=== PATIENT | male | born 1945 | race Caucasian/White ===

== ENCOUNTER 2024-02-11 12:19 | Emergency (ER) | payer MEDICARE, SELFPAY ==
[2024-02-11] VITALS (17 sets, daily range): BP systolic 133–149; BP diastolic 92–129; PULSE 97–135; RESP 14–25; TEMP 36.2–36.8; O2SAT 95–98; BMI 24.5
--- NOTE | 2024-02-11 12:33 | EKG12_ITS ---
Test Reason : Blood Pressure : / mmHG Vent. Rate : 107 BPM Atrial Rate : 107 BPM P-R Int : 128 ms QRS Dur : 066 ms QT Int : 334 ms P-R-T Axes : 052 022 036 degrees QTc Int : 445 ms Sinus tachycardia Otherwise normal ECG Confirmed by EZ BEE, LAINE ([id number]), story editor RAMSES MONSIVAIS ([id number]) on 02/12/2024 1:49:36 PM Referred By: Sal Hayes Confirmed By:LAINE HUI MD
--- NOTE | 2024-02-11 12:33 | RAD_ITS ---
STUDY: X-RAY CHEST REASON FOR EXAM: Male, 78 years old. Neuro deficit, acute, stroke suspected TECHNIQUE: Single AP portable view of the chest. COMPARISON: None. FINDINGS: EKG electrodes are seen. The lungs are clear and expanded. There is no demonstrated pleural abnormality. Normal size heart. Normal mediastinum and yonas. Normal visualized pulmonary arteries. There is atherosclerotic calcification of the aortic arch with tortuosity. There are diffuse degenerative changes of the visualized thoracic spine. Normal visualized ribs, clavicles, and shoulders. There is no demonstrated abnormality of the visualized soft tissue structures of the upper abdomen. RAD/Chest 1 View IMPRESSION: No acute abnormality is seen. Electronically Signed: Geo Andrade MD at 13:46 EDT ,
--- NOTE | 2024-02-11 12:34 | CT_ITS ---
STUDY: CTA HEAD AND NECK WITH CONTRAST REASON FOR EXAM: Male, 78 years old. Neuro deficit, acute, stroke suspected RADIATION DOSAGE (If Supplied By Facility): CTDIvol = ( 26.93 ) mGy, DLP = ( 1556.11 ) mGycm TECHNIQUE: CT angiography was performed with a multi-detector CT scanner. Data acquisition was obtained from the skull base through the vertex following intravenous administration of IV 100mL [id number]-[id number]. MIP images were reconstructed from the axial data set. Post-processing of the angiographic images was performed, with multiplanar reformation and 3D reconstruction. Individualized dose optimization techniques were used for this CT. COMPARISON: No relevant priors. FINDINGS: Normal bilateral petrous carotid arteries. There is calcified plaque formation of the right cavernous carotid artery, without a cross-sectional luminal stenosis. There is calcified plaque formation of the left cavernous carotid artery, without a cross-sectional luminal stenosis. Normal right A1 segments of the anterior cerebral artery. Normal left A1 segments of the anterior cerebral artery. Normal intact anterior communicating artery (ACOM). Normal bilateral A2 segments of the anterior cerebral arteries. Normal right M1 and M2 segments of the middle cerebral arteries, with a normal M1 bifurcation. Normal left M1 and M2 segments of the middle cerebral arteries, with a normal M1 bifurcation. Normal right posterior communicating artery (PCOM). Normal left posterior communicating artery (PCOM). Normal bilateral vertebral arteries. Normal basilar artery with a normal basilar bifurcation. The visualized bilateral superior cerebellar (SCA) arteries are normal. Normal bilateral P1, P2 and visualized P3 segments of the posterior cerebral arteries. There is no demonstrated aneurysm of the [place]. There is no demonstrated abnormality of the visualized brain. AORTIC ARCH: There is atherosclerotic calcific plaque formation of the aortic arch and great vessels arising from the aortic arch, without a hemodynamically significant stenosis. There is a normal origin of the brachiocephalic, left common carotid, and left subclavian arteries. Atherosclerotic plaque formation at the origin of the left common carotid artery and left subclavian artery. RIGHT CAROTID ARTERIES: There is atherosclerotic plaque formation of the common carotid artery, but without a hemodynamically significant stenosis. Normal right common carotid bulb. There is mild atherosclerotic plaque formation of the origin of the right internal carotid artery with less than 50% cross sectional diameter stenosis. Normal visualized cervical portion of the right internal carotid artery. Normal origin of the right external carotid artery (ECA). LEFT CAROTID ARTERIES: There is atherosclerotic plaque formation of the common carotid artery, but without a hemodynamically significant stenosis. Normal left common carotid bulb. There is mild atherosclerotic plaque formation of the origin of the left internal carotid artery with less than 50% cross sectional diameter stenosis. Normal visualized cervical portion of the left internal carotid artery. Normal origin of the left external carotid artery (ECA). VERTEBRAL ARTERIES: Normal bilateral vertebral arteries. CT/CTA Head AND Neck W/ Contrast IMPRESSION: PLAQUE formation at the origin of the left and right internal carotid arteries causing less than 50% stenosis. Electronically Signed: Geo Andrade MD at 14:07 EDT ,
--- NOTE | 2024-02-11 12:34 | ED.VIS.STROK ---
HPI History of Present Illness Chief Complaint: Neuro S/Sx Informant: patient and spouse/S.O. Onset/Context/Timing Onset: Month(s) Context: Gradual Onset Timing: Continuous Quality and Location: Negative for Right Facial Droop, Left Facial Droop, Right Face Paresthesia, Left Face Parasthesia, Right Arm Parasthesia, Left Arm Parasthesia, Right Leg Parasthesia, Left Leg Parasthesia, Right Arm Weakness, Left Arm Weakness, Right Leg Weakness, Left Leg Weakness, Slurred Speech, Expressive Aphasia or Receptive Aphasia Onset: Denies recent illness. Months of decreasing vision. Current Severity: Mild Maximum Severity: Mild Associated Symptoms Associated Symptoms: Negative for Headache, Nausea, Vomiting or Chest Pain Narrative Narrative: 78-year-old male history of detached retina and prior surgeries for cataracts and lens implants. Today saw his award machine operator. Mud Engineer noted a a fair pupillary defect of his right eye. Patient's had some recent falls that he is unsure if it is actually from with his coordination and balance or if it is secondary to his worsening vision. The award machine operator sent him in for evaluation. Prior similar symptoms: Yes Recent Illness/Hospitalization: No PFSH PFS Medical History Cataract Detached retina, right Allergy/AdvReac Type Severity Reaction Status Date / Time No Known Allergies Allergy Verified 02/11/24 12:20 Surgical History History of cataract extraction with lens replacement H/O detached retina repair Social History Smoking Status: Never smoker ROS ROS ED ROS Narrative Denies recent illness. Constitutional Constitutional ED: Denies chills or fever(s) Eyes Eyes: Denies blurry vision ENT ENT ED: Denies ear pain Cardiovascular Cardiovascular: Denies chest pain Respiratory/Chest Respiratory/Chest: Denies cough or dyspnea Gastrointestinal Gastrointestinal: Denies abdominal pain Genitourinary Genitourinary ED: Denies dysuria Musculoskeletal Musculoskeletal: Denies arthralgias Integumentary Denies abscess Neurologic Neurologic: Denies headache(s) Psychiatric Psychiatric: Denies anxiety or depression Endocrine Endocrinology: Denies polydipsia Hematologic/Lymphatic Hematologic/Lymphatic: Denies easy bleeding Allergic/Immunologic Allergic/Immunologic ED: Denies mouth swelling EXAM Physical Exam Narrative Exam Narrative: Well-appearing 78-year-old male sitting upright in bed. Vital signs are stable and he is tachycardic in the 120s. On the monitor there are some artifact but it appears to be a sinus rhythm. H EENT exam pupils round reactive light extra motions are intact. Normal speech. No facial droop. No trauma. Neck nontender. Lungs clear to auscultation bilaterally. Heart tachycardic rate about 122 no murmur. Chest wall ribs nontender. Abdomen soft nontender. Moving all 4 extremities. Nontender no edema. 5 out of 5 emergency room physician strength. Dorsi plantarflexion intact. Neurologically is awake and alert. Answering questions following commands. Fingertip to nose within normal limits. No drift. Normal strength. NIH is 0. Const Vital Signs: 02/11/24 12:20 02/11/24 12:37 02/11/24 12:42 Temperature 98.2 F 97.2 F L Temperature Source Temporal Oral Pulse Rate 135 H 122 H Respiratory Rate 18 20 H Blood Pressure 146/101 H 133/94 H Blood Pressure Mean 116 107 Pulse Ox 97 96 96 Oxygen Delivery Method Room Air Room Air Room Air 02/11/24 13:20 02/11/24 13:23 02/11/24 13:24 Temperature Temperature Source Pulse Rate 100 105 H Respiratory Rate 22 H 24 H Blood Pressure 143/92 H 143/92 H Blood Pressure Mean 109 108 Pulse Ox 95 95 Oxygen Delivery Method Room Air 02/11/24 13:30 02/11/24 13:48 02/11/24 14:00 Temperature Temperature Source Pulse Rate 104 H 97 104 H Respiratory Rate 22 H 18 Blood Pressure 140/95 H Blood Pressure Mean 110 Pulse Ox 97 Oxygen Delivery Method 02/11/24 14:01 02/11/24 14:10 02/11/24 14:12 Temperature Temperature Source Pulse Rate 107 H 107 H 103 H Respiratory Rate 20 H 18 25 H Blood Pressure 149/129 H 140/95 H Blood Pressure Mean 137 107 Pulse Ox 98 97 96 Oxygen Delivery Method 02/11/24 14:15 02/11/24 14:30 02/11/24 14:45 Temperature Temperature Source Pulse Rate 104 H 106 H 102 H Respiratory Rate 17 24 H 19 H Blood Pressure Blood Pressure Mean Pulse Ox 97 96 96 Oxygen Delivery Method 02/11/24 15:00 Temperature Temperature Source Pulse Rate 101 H Respiratory Rate 14 Blood Pressure 139/94 H Blood Pressure Mean 108 Pulse Ox 96 Oxygen Delivery Method Room Air Positive well nourished and well developed; Negative for obese, cachectic, contractures or unkempt General Appearance ED: well developed and NAD; Negative for unkempt, cachectic or contractures Nutritional Appearance: Negative for cachectic or obese HEENT Reports moist mucous membranes atraumatic; Negative for trauma Nose: Negative for other Eyes PERRL and EOMs intact bilaterally General Eye ED: Negative for pale conjunctiva or scleral icterus Neck no lymphadenopathy, supple and no JVD General: Negative for tenderness Thyroid: Negative for other Chest Wall inspection of chest normal and palpation of chest normal Chest: Negative for other Resp normal respiratory effort and clear to auscultation bilaterally Effort and Inspection: Negative for retractions Auscultation: Negative for rales, rhonchi, wheezes or diminished lung sounds Cardio no murmurs Rate: tachycardic Rhythm: regular rhythm GI normal to inspection, nondistended, normoactive bowel sounds, soft to palpation, non-tender, non-distended and no masses Inspection: Negative for abdominal distention Auscultation: normoactive bowel sounds Palpation: Negative for tender, guarding, mass or rebound tenderness present Back/Spine no CVA tenderness General Back: Negative for CVA tenderness Cervical Spine: Negative for cervical spine tenderness Thoracic Spine / Upper Back: Negative for thoracic spinal tenderness Lumbar Spine / Lower Back: Negative for lumbar spinal tenderness Extremity normal to inspection General Extremety ED: Negative for deformity, edema or tenderness General Extremity: Negative for deformity or edema Neuro oriented x3, CN's II-XII intact bilaterally and no sensory deficits noted Neuro Narrative: NIH is 0. Sensorium / Orientation: alert, oriented to person, oriented to place and oriented to time; Negative for orientation impaired, confused, lethargic or stuporous Speech: speech normal Motor Exam: strength 5/5 throughout Psych mental status grossly normal Appearance: Negative for unkempt Attitude: No agitated Mood & Affect: Negative for depressed, anxious or tearful Attention / Concentration: Negative for other Skin no wounds General Skin Exam: Negative for jaundice Rashes: no rashes Trauma: Negative for abrasion or laceration MDM MDM MDM Narrative Medical decision making narrative: 78-year-old male sent in for evaluation to rule out stroke. His exam is normal. His NIH is 0. CTA head and neck and labs to be obtained. He is tachycardic. Repeat exam at 2:06 PM patient doing well. Exam unchanged. NIH remains 0. Nurses had walked the patient said he walked well. Awaiting CAT scan results. Repeat exam at 318 unchanged. Patient I discussed his CAT scan results. He will be discharged home outpatient follow-up. He did not want to be admitted for an MRI or further evaluation. History & Record Review Discussion w/independent historian: Patient Additional record(s) reviewed:: No prior records Lab Data Lab results narrative: CBC shows a white count 8. H&H 15 and 46. Platelets 163. PT/INR and PTT of 13, 1 and 26. Electrolytes show gap of 9. BUN is 17 creatinine 1.4. Glucose 174. Troponin 10. No prior labs available for comparison. Labs: Laboratory Results - last 24 hr 02/11/24 02/11/24 12:33 12:45 WBC 8.2 RBC 4.73 Hgb 15.6 Hct 46.7 MCV 98.7 H MCH 33.0 H MCHC 33.4 RDW Std Deviation 45.0 H RDW Coeff of [place] 12.3 Plt Count 163 MPV 9.7 Immature Gran % (Auto) 1.000 H Neut % (Auto) 85.5 H Lymph % (Auto) 3.5 L Crisp % (Auto) 9.3 Eos % (Auto) 0.1 Baso % (Auto) 0.6 Absolute Neuts (auto) 7.0 Absolute Lymphs (auto) 0.29 L Nucleated RBC % 0 PT 13.2 INR 1.0 APTT 26.0 Sodium 136 Potassium 3.6 Chloride 99 Carbon Dioxide 28.0 Anion Gap 9 BUN 17 Creatinine 1.44 H Estim Creat Clear Calc 45.06 Est GFR (MDRD) Af Amer 61 Est GFR (MDRD) Non-Af 51 L BUN/Creatinine Ratio 11.8 Glucose 174 H Calcium 9.6 Troponin I High Sens 10 POC Glucose 180 H Radiography Chest X-Ray - ED: 1 View, Read by ED Physician, Read by Radiologist, Normal, Heart, Lungs, Mediastinum, Bony Structures, No Acute Disease and Chronic Changes Diagnostic Testing: Clinical Impression(s) from Imaging Studies Chest X-Ray 02/11/24 12:33 IMPRESSION: No acute abnormality is seen. Electronically Signed: Geo Andrade MD at 13:46 EDT , Head/Neck CTA 02/11/24 12:34 IMPRESSION: PLAQUE formation at the origin of the left and right internal carotid arteries causing less than 50% stenosis. Electronically Signed: Geo Andrade MD at 14:07 EDT , Chest x-ray, portable, single view interpreted both by myself and the radiologist shows no acute abnormality. Normal cardiac silhouette. Normal lung messer. Chronic changes. Rhythm Strip Rhythm Strip: Sinus Rhythm Rate: 107 Ectopy: None EKG Initial EKG: Attestation: I personally reviewed and interpreted this EKG as follows: Interpretation: Sinus Tachycardia Comments: Sinus tachycardia rate of 107 no acute signs of [place], ischemia or dysrhythmia. Discharge Plan Triage Chief Complaint: Neuro S/Sx ED Provider: Sal Hayes Dx/Rx/DC Orders Clinical Impression: Change in vision Primary Care Provider: Fallon Shay Referrals: Fallon Shay, MOTOR TRANSPORT INSPECTOR-C [Primary Care Provider] - As Needed Activity Restrictions/Additional Instructions: Follow-up with either your award machine operator or an senior customer service representative. Your CAT scan and labs were unremarkable. Print Language: Faroese Disposition Disposition: Home, Self Care
[2024-02-11 12:51] LABS: Bedside Glucose 180 mg/dL (74-106)
[2024-02-11 12:57] LABS: Absolute Lymphocyte Count 0.29 X10^3/uL (0.83-4.51); Basophil# 0.05 X10^3/uL; Basophil% 0.6 % (0-1); Eosinophil# 0.01 X10^3/uL; Eosinophils% 0.1 % (0-5); Hematocrit 46.7 % (40-54); Hemoglobin 15.6 g/dL (13.0-16.5); Lymphocyte # 0.29 X10^3/ul (0.83-4.51); Lymphocyte % 3.5 % (19-41); Mean Corp Hgb Conc 33.4 g/dL (32-36); Mean Corpuscular Volume 98.7 fL (80-94); Mean Platelet Vol. 9.7 fl (6.2-12.0); Monocyte# 0.76 X10^3/uL; Monocyte% 9.3 % (0-10); NRBC Flagged by Analyzer 0 % (0-5); Neutrophil # 6.98 X10^3/uL (2.7-7.7); Neutrophil % 85.5 % (47-70); POSITIVE DIFFERENTIAL YES; Platelet Count 163 K/mm3 (150-450); RBC Distribution Width CV 12.3 % (11.6-14.6); Red Blood Count 4.73 M/mm3 (4.6-6.2); White Blood Count 8.2 K/mm3 (4.4-11.0)
[2024-02-11 13:07] LABS: Prothrombin Time (Protime)PT. 13.2 SECONDS (11.7-14.9)
[2024-02-11 13:27] LABS: Anion Gap 9 (5-15); BUN 17 mg/dL (7-18); BUN/Creat Ratio 11.8 RATIO (10-20); Calcium,Total 9.6 mg/dL (8.5-10.1); Chloride 99 mmol/L (98-107); Creatinine, Serum 1.44 mg/dL (0.70-1.30); EST Glomerular Filtration Rate 51 mL/min (>60); Est Glom Filt Rate - Afr Amer 61 mL/min (>60); Estimated Creatinine Clearance 45.06 ml/min; Glucose 174 mg/dL (74-106); Potassium 3.6 mmol/L (3.5-5.1); Sodium Level 136 mmol/L (136-145); Troponin-I HS 10 pg/mL (3.0-78.0)
== END 2024-02-11 15:26 | disposition home or self-care (01) ==
PROVIDERS: Emergency Provider Emergency Medicine; PCP Nurse Practitioner Family; Referring Provider Emergency Medicine; Visit Provider Emergency Medicine
DX: H53.9 Unspecified visual disturbance (principal); Z98.49 Cataract extraction status, unspecified eye; Z96.1 Presence of intraocular lens
CPT/HCPCS: 70496; 70498; 71045; 80048; 82962; 84484; 85025; 85610; 85730; 93005; 99284; Q9967; A4216